=== PATIENT | male | born 1960 | race African-American/Black ===

== ENCOUNTER 2018-05-30 10:45 | Inpatient (IN) | payer OTHER ==
[2018-05-30 13:16] VITALS: BMI 32.8
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
[2018-05-30] MEDS ORDERED: MAG HYDROX/AL HYDROX/SIMETH 30 ML UNIT-DOSE CUP PO PRN (14:33)
[2018-05-30] MEDS ORDERED: P-EPHED 60MG/TRIPROLIDI 2.5MG TABLET PO PRN (14:33)
[2018-05-30] MEDS ORDERED: ACETAMINOPHEN 325 MG TABLET (FP) PO PRN (14:33)
[2018-05-30] MEDS ORDERED: IBUPROFEN 400 MG TABLET (FP) PO PRN (14:33)
[2018-05-30] MEDS ORDERED: MAGNESIUM CITRATE 300 ML BOTTLE PO PRN (14:33)
[2018-05-30] MEDS ORDERED: guaiFENesin/D-METHORPHAN HB 10 ML UNIT-DOSE CUPS PO PRN (14:33)
[2018-05-30] MEDS ORDERED: LOPERAMIDE HCL 2 MG CAPSULE PO PRN (14:33)
[2018-05-30] MEDS ORDERED: MAGNESIUM HYDROX 2400MG/30ML ORAL SUSPENSION 30 ML CUP PO PRN (14:33)
[2018-05-30] MEDS ORDERED: hydrOXYzine PAMOATE 50 MG CAPSULE (FP) PO PRN (14:33)
[2018-05-30] MEDS ORDERED: MENTHOL/PHENOL 1 EACH UD MM PRN (14:33)
[2018-05-30] MEDS ORDERED: METHADONE HCL 10 MG TABLET (FOR DETOX USE ONLY) PO ONE ×2 (16:15→23:00)
[2018-05-30] MEDS: diazePAM 5 MG TABLET PO PRN ×2 (16:53→22:18)
[2018-05-30] MEDS: THIAMINE HCL 100 MG TABLET (FP) PO SCH (22:18)
[2018-05-31] MEDS ORDERED: METHADONE HCL 10 MG TABLET (FOR DETOX USE ONLY) PO ONE (10:00)
[2018-05-31] MEDS: PRENATAL VITAMINS W/ FOLIC ACID TABLET (FP) PO SCH (10:11)
[2018-05-31] MEDS: diazePAM 5 MG TABLET PO PRN ×3 (10:12→22:13)
[2018-05-31 10:45] LABS: HEMATOCRIT 39.8 % (35.4-49); HEMOGLOBIN 12.7 GM/dL (11.7-16.9); MCH 30.7 pg (25.7-33.7); PLATELET COUNT 278 K/MM3 (134-434); RBC 4.15 M/mm3 (4.00-5.60); RDW 13.6 % (11.9-15.9); WHITE BLOOD COUNT 4.1 K/mm3 (4.0-10.0)
[2018-05-31] MEDS: LIDOCAINE 5% TOPICAL PATCH TP SCH (11:09)
[2018-05-31 12:03] LABS: ALK PHOS 43 U/L (45-117); ANION GAP 9 MMOL/L (8-16); BILIRUBIN,TOTAL 0.3 mg/dL (0.2-1); BLOOD UREA NITROGEN 17 mg/dL (7-18); CALCIUM 9.2 mg/dL (8.5-10.1); CHLORIDE 104 mmol/L (98-107); CO2 25 mmol/L (21-32); CREATININE 1.1 mg/dL (0.55-1.3); GLUCOSE,RANDOM 93 mg/dL (74-106); POTASSIUM 4.5 mmol/L (3.5-5.1); SGOT/AST 19 U/L (15-37); SGPT/ALT 26 U/L (13-61); SODIUM 139 mmol/L (136-145); TOT PROT 7.9 g/dl (6.4-8.2)
--- NOTE | 2018-05-31 16:08 | PN ---
S COWS - Scale Resting Pulse: 0= [place] 80 or Below Sweatin= Chills/Flushing Restless Observation: 1= Difficult to Sit Still Pupil Size: 1= Pupils >than Normal Bone or Joint Aches: 2= Severe Diffuse Aches Runny Nose/ Eye Tearin= Nasal Congestion GI Upset > 30mins: 1= Stomach Cramp Tremor Observation of Outstretched Hands: 1= Tremor [place], Not Seen Yawning Observation: 2= >3x During Session Anxiety or Irritability: 1=Feels Anxious/Irritable Goose Flesh Skin: 0=Smooth Skin COWS Score: 11 S Progress Note (SOAP) Subjective: joints pain body aches tremor sweat restlessness Objective: 05/31/18 16:09 Vital Signs Temperature 99.3 F 05/31/18 13:32 Pulse Rate 59 L 05/31/18 13:32 Respiratory Rate 20 05/31/18 13:32 Blood Pressure 101/62 05/31/18 13:32 O2 Sat by Pulse Oximetry (%) Laboratory Last Values WBC 4.1 K/mm3 (4.0-10.0) 05/31/18 06:00 RBC 4.15 M/mm3 (4.00-5.60) 05/31/18 06:00 Hgb 12.7 GM/dL (11.7-16.9) 05/31/18 06:00 Hct 39.8 % (35.4-49) 05/31/18 06:00 MCV 96.0 fl (80-96) 05/31/18 06:00 MCH 30.7 pg (25.7-33.7) 05/31/18 06:00 MCHC 32.0 g/dl (32.0-35.9) 05/31/18 06:00 RDW 13.6 % (11.9-15.9) 05/31/18 06:00 Plt Count 278 K/MM3 (134-434) 05/31/18 06:00 MPV 9.0 fl (7.5-11.1) 05/31/18 06:00 Sodium 139 mmol/L (136-145) 05/31/18 06:00 Potassium 4.5 mmol/L (3.5-5.1) 05/31/18 06:00 Chloride 104 mmol/L (98-107) 05/31/18 06:00 Carbon Dioxide 25 mmol/L (21-32) 05/31/18 06:00 Anion Gap 9 MMOL/L (8-16) 05/31/18 06:00 BUN 17 mg/dL (7-18) 05/31/18 06:00 Creatinine 1.1 mg/dL (0.55-1.3) 05/31/18 06:00 Creat Clearance w eGFR > 60 (>60) 05/31/18 06:00 Random Glucose 93 mg/dL (74-106) 05/31/18 06:00 Calcium 9.2 mg/dL (8.5-10.1) 05/31/18 06:00 Total Bilirubin 0.3 mg/dL (0.2-1) 05/31/18 06:00 AST 19 U/L (15-37) 05/31/18 06:00 ALT 26 U/L (13-61) 05/31/18 06:00 Alkaline Phosphatase 43 U/L (45-117) L 05/31/18 06:00 Total Protein 7.9 g/dl (6.4-8.2) 05/31/18 06:00 Albumin 4.0 g/dl (3.4-5.0) 05/31/18 06:00 RPR Titer Nonreactive (NONREACTIVE) 05/31/18 06:00 lab noted Assessment: 05/31/18 16:09 withdrawal sx Plan: continue detox
[2018-05-31] MEDS: LIDOCAINE PATCH REMOVAL MC SCH (22:13)
[2018-05-31] MEDS: MELATONIN 5 MG TABLETS PO PRN (22:13)
[2018-05-31] MEDS: THIAMINE HCL 100 MG TABLET (FP) PO SCH (22:13)
[2018-06-01] MEDS ORDERED: COLLOIDAL OATMEAL 1 BAR EACH TP PRN (08:53)
[2018-06-01] MEDS ORDERED: METHADONE HCL 5 MG TABLET (FOR DETOX USE ONLY) PO ONE (10:00)
[2018-06-01] MEDS: diazePAM 5 MG TABLET PO PRN ×2 (10:14→21:44)
[2018-06-01] MEDS: PRENATAL VITAMINS W/ FOLIC ACID TABLET (FP) PO SCH (10:14)
[2018-06-01] MEDS: MINERAL OIL/PETROLAT/WATER TOPICAL CREAM 113 GM JAR TP SCH ×2 (10:14→21:47)
[2018-06-01] MEDS: LIDOCAINE 5% TOPICAL PATCH TP SCH (10:15)
--- NOTE | 2018-06-01 14:20 | PN ---
BHS COWS - Scale Resting Pulse: 0= [place] 80 or Below Sweatin= No chills or Flushing Restless Observation: 1= Difficult to Sit Still Pupil Size: 2= Moderately Dilated Bone or Joint Aches: 2= Severe Diffuse Aches Runny Nose/ Eye Tearin= None GI Upset > 30mins: 0= None Tremor Observation of Outstretched Hands: 0= None Yawning Observation: 0= None Anxiety or Irritability: 2=Irritable/Anxious Goose Flesh Skin: 0=Smooth Skin COWS Score: 7 BHS Progress Note (SOAP) Subjective: PATIENT C/O ANXIETY, RESTLESSNESS, AND BODY ACHES. Objective: 06/01/18 14:19 Vital Signs Temperature 97.7 F 06/01/18 13:04 Pulse Rate 84 06/01/18 13:04 Respiratory Rate 18 06/01/18 13:04 Blood Pressure 114/73 06/01/18 13:04 O2 Sat by Pulse Oximetry (%) Laboratory Tests 05/31/18 05/31/18 05/31/18 06:00 06:00 06:00 WBC 4.1 RBC 4.15 Hgb 12.7 Hct 39.8 MCV 96.0 MCH 30.7 MCHC 32.0 RDW 13.6 Plt Count 278 MPV 9.0 Sodium 139 Potassium 4.5 Chloride 104 Carbon Dioxide 25 Anion Gap 9 BUN 17 Creatinine 1.1 Creat Clearance w eGFR > 60 Random Glucose 93 Calcium 9.2 Total Bilirubin 0.3 AST 19 ALT 26 Alkaline Phosphatase 43 L Total Protein 7.9 Albumin 4.0 RPR Titer Nonreactive PE: ALERT AND ORIENTED X 3 SKIN WARM AND DRY CAR S1S2 RESP CTA BL EXT FULL ROM, AMB AD TAY +RESTLESSNESS. Assessment: 06/01/18 14:20 WITHDRAWAL SX Plan: CONTINUE DETOX ENCOURAGE FLUIDS CONTINUE TO MONITOR
[2018-06-01] MEDS: THIAMINE HCL 100 MG TABLET (FP) PO SCH (21:44)
[2018-06-01] MEDS: LIDOCAINE PATCH REMOVAL MC SCH (21:46)
[2018-06-02] MEDS ORDERED: METHADONE HCL 5 MG TABLET (FOR DETOX USE ONLY) PO ONE (10:00)
[2018-06-02] MEDS: PRENATAL VITAMINS W/ FOLIC ACID TABLET (FP) PO SCH (10:07)
[2018-06-02] MEDS: diazePAM 5 MG TABLET PO PRN (10:07)
[2018-06-02] MEDS: LIDOCAINE 5% TOPICAL PATCH TP SCH (10:09)
[2018-06-02] MEDS: MINERAL OIL/PETROLAT/WATER TOPICAL CREAM 113 GM JAR TP SCH ×2 (10:10→22:13)
--- NOTE | 2018-06-02 11:48 | PN ---
BHS Progress Note (SOAP) Subjective: Tremors, sweats, chills and generalized weakness Objective: 06/02/18 11:47 Vital Signs Temperature 97.7 F 06/02/18 09:59 Pulse Rate 73 06/02/18 09:59 Respiratory Rate 18 06/02/18 09:59 Blood Pressure 108/80 06/02/18 09:59 O2 Sat by Pulse Oximetry (%) Laboratory Last Values WBC 4.1 K/mm3 (4.0-10.0) 05/31/18 06:00 RBC 4.15 M/mm3 (4.00-5.60) 05/31/18 06:00 Hgb 12.7 GM/dL (11.7-16.9) 05/31/18 06:00 Hct 39.8 % (35.4-49) 05/31/18 06:00 MCV 96.0 fl (80-96) 05/31/18 06:00 MCH 30.7 pg (25.7-33.7) 05/31/18 06:00 MCHC 32.0 g/dl (32.0-35.9) 05/31/18 06:00 RDW 13.6 % (11.9-15.9) 05/31/18 06:00 Plt Count 278 K/MM3 (134-434) 05/31/18 06:00 MPV 9.0 fl (7.5-11.1) 05/31/18 06:00 Sodium 139 mmol/L (136-145) 05/31/18 06:00 Potassium 4.5 mmol/L (3.5-5.1) 05/31/18 06:00 Chloride 104 mmol/L (98-107) 05/31/18 06:00 Carbon Dioxide 25 mmol/L (21-32) 05/31/18 06:00 Anion Gap 9 MMOL/L (8-16) 05/31/18 06:00 BUN 17 mg/dL (7-18) 05/31/18 06:00 Creatinine 1.1 mg/dL (0.55-1.3) 05/31/18 06:00 Creat Clearance w eGFR > 60 (>60) 05/31/18 06:00 Random Glucose 93 mg/dL (74-106) 05/31/18 06:00 Calcium 9.2 mg/dL (8.5-10.1) 05/31/18 06:00 Total Bilirubin 0.3 mg/dL (0.2-1) 05/31/18 06:00 AST 19 U/L (15-37) 05/31/18 06:00 ALT 26 U/L (13-61) 05/31/18 06:00 Alkaline Phosphatase 43 U/L (45-117) L 05/31/18 06:00 Total Protein 7.9 g/dl (6.4-8.2) 05/31/18 06:00 Albumin 4.0 g/dl (3.4-5.0) 05/31/18 06:00 RPR Titer Nonreactive (NONREACTIVE) 05/31/18 06:00 Labs noted Assessment: 06/02/18 11:47 Withdrawal sx Plan: Continue detox
[2018-06-02] MEDS: MELATONIN 5 MG TABLETS PO PRN (22:12)
[2018-06-02] MEDS: THIAMINE HCL 100 MG TABLET (FP) PO SCH (22:13)
[2018-06-02] MEDS: LIDOCAINE PATCH REMOVAL MC SCH (23:19)
[2018-06-03] MEDS ORDERED: METHADONE HCL 10 MG TABLET (FOR DETOX USE ONLY) PO ONE (10:00)
[2018-06-03] MEDS: LIDOCAINE 5% TOPICAL PATCH TP SCH (10:22)
[2018-06-03] MEDS: PRENATAL VITAMINS W/ FOLIC ACID TABLET (FP) PO SCH (10:22)
[2018-06-03] MEDS: MINERAL OIL/PETROLAT/WATER TOPICAL CREAM 113 GM JAR TP SCH ×2 (10:23→23:25)
--- NOTE | 2018-06-03 17:15 | PN ---
BHS Progress Note (SOAP) Subjective: Interrupted sleep Objective: 06/03/18 17:14 Last Vital Signs Temp Pulse Resp BP Pulse Ox 97.5 F L 75 18 122/78 06/03/18 13:34 06/03/18 13:34 06/03/18 13:34 06/03/18 13:34 Laboratory Tests 05/31/18 05/31/18 05/31/18 06:00 06:00 06:00 WBC 4.1 RBC 4.15 Hgb 12.7 Hct 39.8 MCV 96.0 MCH 30.7 MCHC 32.0 RDW 13.6 Plt Count 278 MPV 9.0 Sodium 139 Potassium 4.5 Chloride 104 Carbon Dioxide 25 Anion Gap 9 BUN 17 Creatinine 1.1 Creat Clearance w eGFR > 60 Random Glucose 93 Calcium 9.2 Total Bilirubin 0.3 AST 19 ALT 26 Alkaline Phosphatase 43 L Total Protein 7.9 Albumin 4.0 RPR Titer Nonreactive Labs reviewed Assessment: 06/03/18 17:15 Withdrawal symptoms Plan: Continue detox Encouraged PO water intake
[2018-06-03] MEDS: LIDOCAINE PATCH REMOVAL MC SCH (23:26)
[2018-06-03] MEDS: THIAMINE HCL 100 MG TABLET (FP) PO SCH (23:26)
[2018-06-04] MEDS ORDERED: METHADONE HCL 5 MG TABLET (FOR DETOX USE ONLY) PO ONE (06:00)
[2018-06-04 06:02] VITALS: BP 97/61; PULSE 60; TEMP 97.3
--- NOTE | 2018-06-04 13:18 | DS ---
[facility] Detox Discharge Summary Admission Date: 05/30/18 Discharge Date: 06/04/18 - History Present History: Opioid Dependence Additional Comments: 58 years old male admitted on 05/30/18 for opiate withdrawal stability completed detox regimen tolerated well alert no [facility] - Physical Exam Results Vital Signs: Vital Signs Temperature 97.3 F L 06/04/18 06:02 Pulse Rate 60 06/04/18 06:02 Respiratory Rate 18 06/04/18 06:02 Blood Pressure 97/61 06/04/18 06:02 O2 Sat by Pulse Oximetry (%) Pertinent Admission Physical Exam Findings: opiate withdrawal sx Vital Signs Temperature 97.3 F L 06/04/18 06:02 Pulse Rate 60 06/04/18 06:02 Respiratory Rate 18 06/04/18 06:02 Blood Pressure 97/61 06/04/18 06:02 O2 Sat by Pulse Oximetry (%) Laboratory Last Values WBC 4.1 K/mm3 (4.0-10.0) 05/31/18 06:00 RBC 4.15 M/mm3 (4.00-5.60) 05/31/18 06:00 Hgb 12.7 GM/dL (11.7-16.9) 05/31/18 06:00 Hct 39.8 % (35.4-49) 05/31/18 06:00 MCV 96.0 fl (80-96) 05/31/18 06:00 MCH 30.7 pg (25.7-33.7) 05/31/18 06:00 MCHC 32.0 g/dl (32.0-35.9) 05/31/18 06:00 RDW 13.6 % (11.9-15.9) 05/31/18 06:00 Plt Count 278 K/MM3 (134-434) 05/31/18 06:00 MPV 9.0 fl (7.5-11.1) 05/31/18 06:00 Sodium 139 mmol/L (136-145) 05/31/18 06:00 Potassium 4.5 mmol/L (3.5-5.1) 05/31/18 06:00 Chloride 104 mmol/L (98-107) 05/31/18 06:00 Carbon Dioxide 25 mmol/L (21-32) 05/31/18 06:00 Anion Gap 9 MMOL/L (8-16) 05/31/18 06:00 BUN 17 mg/dL (7-18) 05/31/18 06:00 Creatinine 1.1 mg/dL (0.55-1.3) 05/31/18 06:00 Creat Clearance w eGFR > 60 (>60) 05/31/18 06:00 Random Glucose 93 mg/dL (74-106) 05/31/18 06:00 Calcium 9.2 mg/dL (8.5-10.1) 05/31/18 06:00 Total Bilirubin 0.3 mg/dL (0.2-1) 05/31/18 06:00 AST 19 U/L (15-37) 05/31/18 06:00 ALT 26 U/L (13-61) 05/31/18 06:00 Alkaline Phosphatase 43 U/L (45-117) L 05/31/18 06:00 Total Protein 7.9 g/dl (6.4-8.2) 05/31/18 06:00 Albumin 4.0 g/dl (3.4-5.0) 05/31/18 06:00 RPR Titer Nonreactive (NONREACTIVE) 05/31/18 06:00 lab noted - Treatment Hospital Course: Detox Protocol Followed, Detoxed Safely, Responded well, Discharged Condition Good, Rehab Referral Accepted Patient has Accepted a Rehab Referral to: [facility] - Medication Discharge Medications: Ambulatory Orders NK [No Known Home Medication] 05/30/18 - Diagnosis (1) Opioid dependence with withdrawal Status: Acute - AMA Did Patient Leave Against Medical Advice: No
== END 2018-06-04 09:03 | disposition home or self-care (01) | DRG 773 ==
LOC: YASAS 10:45 → Y3N 15:55
PROC: HZ2ZZZZ Detoxification Services for Substance Abuse Treatment (ICD-10-PCS; principal; 2018-05-30)
DX: F11.20 Opioid dependence, uncomplicated (principal); E66.9 Obesity, unspecified; Z68.32 Body mass index [BMI] 32.0-32.9, adult
CPT/HCPCS: 36415; 80053; 85027; 86593